=== PATIENT | female | born 1955 | race Caucasian/White ===

== ENCOUNTER 2018-10-12 12:12 | Day surgery (SDC) | payer BC ==
[~2018-10-12] VITALS: Ht 160 cm; Wt 77.4 kg
[~2018-10-12 12:12] MED LIST: Lisinopril2.5 MG PO; Pravastatin Sod40 MG PO
[2018-10-12] MEDS ORDERED: BIOTIN5000 MCG PO (13:43)
== END 2018-10-12 15:11 | disposition home or self-care (01) ==
LOC: ORSCSDS 12:12
PROVIDERS: Internal Medicine Gastroenterology
PROC: 0DBL8ZX Excision of Transverse Colon, Via Natural or Artificial Opening Endoscopic, Diagnostic (ICD-10-PCS; principal; 2018-10-12 14:15)
DX: Z12.11 Encounter for screening for malignant neoplasm of colon (principal); D12.3 Benign neoplasm of transverse colon; Z86.010 Personal history of colon polyps; Z83.71 Family history of colonic polyps; E11.9 Type 2 diabetes mellitus without complications; Z87.891 Personal history of nicotine dependence; Z79.899 Other long term (current) drug therapy
CPT/HCPCS: 82947; 88305; J7120

== ENCOUNTER → 2019-12-09 | Outpatient (CLI) | payer BC ==
[~2019-12-09] MED LIST changes: +BIOTIN5000 MCG PO
== END ==
LOC: LAB EV 05:00 → LAB FUT 12-07 11:50
DX: K21.9 Gastro-esophageal reflux disease without esophagitis (principal); R10.13 Epigastric pain; R13.10 Dysphagia, unspecified
CPT/HCPCS: 87338

== ENCOUNTER 2020-02-13 12:42 | Day surgery (SDC) | payer BC, OTHER ==
[~2020-02-13] VITALS: Ht 162.6 cm; Wt 81.6 kg
[2020-02-13] MEDS ORDERED: Doxycycline Mo100 M1 PO (12:58)
[2020-02-13] MEDS ORDERED: Aspir 8181 MG PO (12:59)
[2020-02-13] MEDS ORDERED: ABAT250V (12:59)
--- NOTE | 2020-02-13 13:34 | NUR ---
LATE ENTRY 1254 PT AMBULATED TO ROOM 208 FOR PREOP. History, Chart, Medications and Allergies reviewed before start of procedure. Lungs clear T/O to Auscultation. Patient confirms NPO status and agrees with scheduled surgery. Patient States Post-Procedure ride home has been arranged.
--- NOTE | 2020-02-13 15:14 | NUR ---
02/13/20 1514 ADAM UMANA History, Chart, Medications and Allergies reviewed before start of procedure. O2 VIA N/C INTACT THROUGHOUT SEDATION/PROCEDURE. O2 VIA N/C INTACT THROUGHOUT SEDATION/PROCEDURE. MONITOR INTACT WITH CONTINUOUS PULSE OXIMETRY AND INTERMITTENT BP. PATIENT DETERMINED TO BE ASA APPROPRIATE FOR PROPOFOL SEDATION PRIOR TO START OF PROCEDURE BY .
--- NOTE | 2020-02-13 15:55 | NUR ---
DISCHARGE Patient up to Ambulate independently. Gait steady. Discharge instructions reviewed with patient. Patient verbalizes understanding. Copy given to patient to take home. Patient States Post-Procedure ride home has been arranged. Discharged via wheelchair to private car for ride home. PT DENIES N/V AND IV DCD WITH OUT PROBLEMS PT ABLE TO KEEP DOWN WATER AND CRACKERS
[2020-02-14] MEDS ORDERED: AMLO5 PO (07:28)
== END 2020-02-13 22:40 | disposition home or self-care (01) ==
LOC: ORSCMMR 12:42 → ORD 14:00 → ORSCMMR 22:40
PROVIDERS: Internal Medicine Gastroenterology
PROC: 0DJ08ZZ Inspection of Upper Intestinal Tract, Via Natural or Artificial Opening Endoscopic (ICD-10-PCS; principal; 2020-02-13 14:00)
DX: F45.8 Other somatoform disorders (principal); E78.5 Hyperlipidemia, unspecified; E66.9 Obesity, unspecified; Z68.32 Body mass index [BMI] 32.0-32.9, adult; K21.9 Gastro-esophageal reflux disease without esophagitis; Z87.891 Personal history of nicotine dependence
CPT/HCPCS: J2704; J7120

== ENCOUNTER 2020-02-14 05:47 | Day surgery (SDC) | payer BC ==
[~2020-02-14] VITALS: Ht 160 cm; Wt 82.0 kg
[~2020-02-14 05:47] MED LIST changes: +ABAT250V; +Aspir 8181 MG PO; +Doxycycline Mo100 M1 PO
[2020-02-14] MEDS ORDERED: AMLO5 PO (07:28)
--- NOTE | 2020-02-14 09:17 | NUR ---
2mL AIR RELEASED FROM TR BAND. NO BLEEDING OR OOZING NOTED. WILL CONTINUE TO MONITOR AND RELEASE AIR UNTIL FULLY DEFLATED. VSS. PT DENIES ANY PAIN.
--- NOTE | 2020-02-14 09:25 | NUR ---
AIR FULLY RELEASED FROM TR BAND. NO BLEEDING, OOZING OR HEMATOMA NOTED. PT DENIES PAIN. NO SWELLING NOTED. WILL CONTINUE TO MONITOR.
--- NOTE | 2020-02-14 09:36 | NUR ---
PT UP TO RESTROOM, STEADY GAIT. TR BAND HAS BEEN DEFLATED. ARM BOARD REMAINS ON FOR SUPPORT. PT GETTING DRESSED WITH NO NEEDED ASSISTANCE. PT RIDE HAS BEEN CALLED TO TAKE HER HOME. NEW PRESCRIPTION CALLED INTO [facility]. RIGHT WRIST SITE APPEARS TO BE WNL. SOFT NON TENDER WITH NO ACTIVE BLEEDING, OOZING, OR PAIN.
--- NOTE | 2020-02-14 09:42 | NUR ---
TR BAND REMOVED FROM RIGHT WRIST, RED CLOTH DOT DRESSING APPLIED. ARM BOARD ON FOR SUPPORT/ALONG WITH SLING. SITE SOFT NON TENDER WITH NO BLEEDING, OOZING, OR SWELLING. IV REMOVED FROM LAC WITH CATH INTACT, PRESSURE DRESSING APPLIED. PT VERBALIZING UNDERSTANDING OF D/C INSTRUCTIONS. PAPERWORK PROVIDED IN [facility]. ENCOURAGED TO FOLLOW UP SCHEDULED WITH DR. WINKLER. VSS.
--- NOTE | 2020-02-14 09:59 | NUR ---
PT TAKEN VIA W/C OUT TO PRIVATE VEHICLE. RIGHT WRIST APPEARS STABLE AT TIME OF DISPO. JAKN.
== END 2020-02-14 10:00 | disposition home or self-care (01) ==
LOC: MHTC 05:47
PROC: 4A023N7 Measurement of Cardiac Sampling and Pressure, Left Heart, Percutaneous Approach (ICD-10-PCS; principal; 2020-02-14)
PROC: B201YZZ Plain Radiography of Multiple Coronary Arteries using Other Contrast (ICD-10-PCS; principal; 2020-02-14)
DX: R07.89 Other chest pain (principal); R94.39 Abnormal result of other cardiovascular function study; I10 Essential (primary) hypertension; E11.9 Type 2 diabetes mellitus without complications; E78.5 Hyperlipidemia, unspecified; Z87.891 Personal history of nicotine dependence; Z79.82 Long term (current) use of aspirin; Z79.899 Other long term (current) drug therapy; E66.3 Overweight; Z68.32 Body mass index [BMI] 32.0-32.9, adult
CPT/HCPCS: 93458; 99152; C1769; C1894; J1644; J2250; J3010; J7030; Q9967

== ENCOUNTER 2021-11-12 10:54 | Day surgery (SDC) | payer BC ==
[~2021-11-12] VITALS: Ht 160 cm; Wt 79.4 kg
[~2021-11-12 10:54] MED LIST changes: +AMLO5 PO
--- NOTE | 2021-11-12 11:46 | NUR ---
Ambulatory in Day Surgery History, Chart, Medications and Allergies reviewed before start of procedure. Lungs clear T/O to Auscultation. Patient confirms NPO status and agrees with scheduled surgery. Pre-Op teaching done. Pt verbalizes understanding. Patient States Post-Procedure ride home has been arranged.
--- NOTE | 2021-11-12 13:36 | NUR ---
11/12/21 1335 Carley Ivan History, Chart, Medications and Allergies reviewed before start of procedure. Patient confirms NPO status and agrees with scheduled surgery. 3-LEAD EKG REVIEWED WITH PHYSICIAN PRIOR TO START OF PROCEDURE. MONITOR INTACT WITH CONTINUOUS PULSE OXIMETRY AND INTERMITTENT BP. PATIENT DETERMINED TO BE ASA APPROPRIATE FOR PROPOFOL SEDATION PRIOR TO START OF PROCEDURE BY DR. CALLAHAN.
--- NOTE | 2021-11-12 14:19 | NUR ---
PT TOLERATING PO FLUIDS AND SOLIDS. RIDE INFORMED OF STATUS.
--- NOTE | 2021-11-12 14:37 | NUR ---
Discharge instructions reviewed with patient. Patient verbalizes understanding. Copy given to patient to take home. Discharged via wheelchair to private car for ride home.
== END 2021-11-12 14:39 | disposition home or self-care (01) ==
LOC: ORSCMMR 10:54 → ORSCSDS 12:00 → ORD 12:00 → ORSCSDS 12:30 → ORSCMMR 14:39
PROVIDERS: Internal Medicine Gastroenterology
PROC: 0DBK8ZX Excision of Ascending Colon, Via Natural or Artificial Opening Endoscopic, Diagnostic (ICD-10-PCS; principal; 2021-11-12 12:00)
DX: Z12.11 Encounter for screening for malignant neoplasm of colon (principal); Z86.010 Personal history of colon polyps; Z83.71 Family history of colonic polyps; D12.2 Benign neoplasm of ascending colon; K21.9 Gastro-esophageal reflux disease without esophagitis; K64.4 Residual hemorrhoidal skin tags; K63.89 Other specified diseases of intestine; Z79.899 Other long term (current) drug therapy
CPT/HCPCS: 88305; J2704; J7120

== ENCOUNTER 2024-04-03 07:36 | Emergency (ER) | payer MEDICARE, BC ==
[~2024-04-03] VITALS: Ht 160 cm; Wt 79.0 kg
[2024-04-03] MEDS ORDERED: NS 1,000 ML IV SCH ×2 (07:45→11:25)
[2024-04-03] MEDS ORDERED: Ondansetron HCl 2 MG / ML 2ML Vial IV ONE (08:45)
[2024-04-03 08:50] LABS: BASOPHILS ABSOLUTE AUTO 0.04 K/mm3 (0.00-0.23); BASOPHILS PERCENT AUTO 1 % (0-2); EOSINOPHILS ABSOLUTE AUTO 0.08 K/mm3 (0.00-0.68); EOSINOPHILS PERCENT AUTO 1 % (0-6); Hematocrit 43.7 % (33.0-51.0); Hemoglobin 15.1 g/dL (11.5-16.0); IMMATURE GRAN ABSOLUTE AUTO 0.03 K/mm3 (0.00-0.10); IMMATURE GRAN PERCENT AUTO 0 % (0-1); LYMPHOCYTES ABSOLUTE AUTO 2.25 K/mm3 (0.84-5.20); LYMPHOCYTES PERCENT AUTO 27 % (21-46); MONOCYTES ABSOLUTE AUTO 0.55 K/mm3 (0.16-1.47); MONOCYTES PERCENT AUTO 7 % (4-13); Mean Corpuscular HGB 31.7 pg (26.0-34.0); Mean Corpuscular HGB Conc 34.6 g/dL (31.5-36.5); Mean Corpuscular Volume 92 fL (80-100); Mean Platelet Volume 10.1 fL (9.1-12.4); NEUTROPHILS ABSOLUTE AUTO 5.37 K/mm3 (1.96-9.15); NEUTROPHILS PERCENT AUTO 65 % (41-73); Platelet Count 205 K/mm3 (150-400); RDW Coefficient Variation 11.9 % (11.7-14.2); RDW Standard Deviation 39.9 fL (35.1-46.3); Red Blood Cell Count 4.77 M/mm3 (3.80-5.20); White Blood Cell Count 8.32 K/mm3 (4.00-11.30)
[2024-04-03] MEDS ORDERED: HYDROmorphone HCl/Pf 1MG SYR IV ONE ×2 (08:50→09:15)
[2024-04-03 09:19] LABS: Albumin/Globulin Ratio 0.9 (0.8-1.8); Bilirubin, Total 0.9 mg/dL (0.1-1.0); Bun/Creatinine Ratio 15.4 (12.0-20.0); Calcium, Blood 8.9 mg/dL (8.5-10.1); Creatinine, Blood 0.97 mg/dL (0.40-1.00); Globulin, Blood 4.3 g/dL (2.2-4.0); Potassium, Blood 3.9 mmol/L (3.5-5.5); Total Protein, Blood 8.3 g/dL (6.4-8.2)
[2024-04-03] MEDS ORDERED: ESTRADIOL PO (09:56)
[2024-04-03 10:49] LABS: Source, Urine Straight Cath
[2024-04-03 10:54] LABS: Bilirubin, Urine Neg (Neg); Blood, Urine 5+ (Neg); Glucose Qualitative, Urine 2+ (Neg); Ketones, Urine 2+ (Neg); Leukocyte Esterase, Urine Neg (Neg); Nitrite, Urine Neg (Neg); Protein, Urine 1+ (Neg); Specific Gravity, Urine 1.015 (1.003-1.022); Urobilinogen, Urine NORM (Normal)
[2024-04-03 11:16] LABS: Appearance, Urine Hazy (Clear); Color, Urine Yellow (P-Yellow)
[2024-04-03 11:18] LABS: Bacteria Rare /hpf; Red Blood Cells, Urine 50-100 /hpf (0-2); Squamous Epithelial Cells Rare /hpf (Few)
[2024-04-03] MEDS ORDERED: Tamsulosin HCl 0.4 MG Cap PO ONE (11:30)
[2024-04-03] MEDS ORDERED: TAMS.4ER PO (12:59)
[2024-04-03 13:00] VITALS: BP 166/81
[2024-04-03] MEDS ORDERED: OXYC5 PO (13:15)
[2024-04-03] MEDS ORDERED: Ondansetron 4 MG SoluTab SL ONE (13:30)
[2024-04-03] MEDS ORDERED: ONDA4ODT MM (13:31)
== END 2024-04-03 13:33 | disposition home or self-care (01) ==
LOC: ER 07:36
PROVIDERS: Emergency Medicine; Family Medicine
DX: N13.2 Hydronephrosis with renal and ureteral calculous obstruction (principal); E11.9 Type 2 diabetes mellitus without complications; Z87.891 Personal history of nicotine dependence; Z79.899 Other long term (current) drug therapy
CPT/HCPCS: 74177; 80053; 81001; 83690; 84484; 85025; 96361; 96374-59; 96375; 99284-25; A9270; J1170; J2405; J7030; Q9967

== ENCOUNTER 2025-01-30 08:41 | Day surgery (SDC) | payer MEDICARE, BC ==
[~2025-01-30] VITALS: Ht 157.5 cm; Wt 69.9 kg
[~2025-01-30 08:41] MED LIST changes: +ESTRADIOL PO; +Lactated Ringer's 1,000 ML IV ONE; +ONDA4ODT MM; +OXYC5 PO; +TAMS.4ER PO; +propofoL 50 ML IV ONE
[2025-01-30] MEDS ORDERED: Lactated Ringer's 1,000 ML IV ONE (09:59)
[2025-01-30 12:07] VITALS: BP 129/82
== END 2025-01-30 11:45 | disposition home or self-care (01) ==
LOC: ORSCSDS 08:41
PROVIDERS: Internal Medicine Gastroenterology
PROC: 0DBP8ZX Excision of Rectum, Via Natural or Artificial Opening Endoscopic, Diagnostic (ICD-10-PCS; principal; 2025-01-30 10:00)
PROC: 0DB78ZX Excision of Stomach, Pylorus, Via Natural or Artificial Opening Endoscopic, Diagnostic (ICD-10-PCS; principal; 2025-01-30 10:00)
DX: K21.9 Gastro-esophageal reflux disease without esophagitis (principal); Z12.11 Encounter for screening for malignant neoplasm of colon; K29.50 Unspecified chronic gastritis without bleeding; Z86.0101 Personal history of adenomatous and serrated colon polyps; D12.8 Benign neoplasm of rectum; Z83.719 Family history of colon polyps, unspecified; R13.10 Dysphagia, unspecified; K76.0 Fatty (change of) liver, not elsewhere classified; Z79.899 Other long term (current) drug therapy
CPT/HCPCS: 82947; 88305; 88342; J2704; J7120